=== PATIENT | female | born 1995 | race Caucasian/White ===

== ENCOUNTER 2017-01-16 23:27 | Emergency (ER) | payer OTHER ==
[~2017-01-16] VITALS: Ht 165.1 cm; Wt 80.0 kg
[2017-01-16] MEDS ORDERED: ONDANSETRON (ODT) 4 MG TAB ODT STA (23:39)
[2017-01-16 23:40] VITALS: Ht 165.1 cm; Wt 80.0 kg
[2017-01-17] MEDS ORDERED: morphine 10 MG INJ IM ONE
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
[2017-01-17 01:54] VITALS: BP 117/82; PULSE 86; RESP 12
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
[2017-01-17] MEDS ORDERED: IBUP-1542 PO (02:22)
== END 2017-01-17 02:45 | disposition home or self-care (01) ==
LOC: E/R 23:27
DX: S79.911A Unspecified injury of right hip, initial encounter (principal); R07.9 Chest pain, unspecified; V43.62XA Car passenger injured in collision with other type car in traffic accident, initial encounter
CPT/HCPCS: 71010; 73030; 73510; J2270; Z7610; 96372